=== PATIENT | male | born 1975 | race African-American/Black ===

== ENCOUNTER 2022-07-31 17:56 | Emergency (ER) | payer MEDICAID ==
[~2022-07-31] VITALS: Ht 170.2 cm; Wt 88.0 kg
[2022-07-31 18:14] VITALS: BP 180/78
== END 2022-07-31 23:26 | disposition left against medical advice (07) ==
LOC: ER 17:56
DX: Z53.21 Procedure and treatment not carried out due to patient leaving prior to being seen by health care provider (principal)